=== PATIENT | male | born 1995 | race Caucasian/White ===

== ENCOUNTER 2025-04-08 13:22 | Emergency (ER) | payer MEDICAID ==
[~2025-04-08] VITALS: Ht 170.2 cm; Wt 89.0 kg
[2025-04-08 13:24] VITALS: O2SAT 97
[2025-04-08 14:04] LABS: BASOPHILS % 0.7 % (0.0-2.0); EOSINOPHILS % 0.2 % (0.0-5.0); HEMATOCRIT. 47.8 % (42.0-52.0); HEMOGLOBIN. 16.6 g/dL (14.0-18.0); LYMPHOCYTES % 44.3 % (20.0-50.0); MEAN PLATELET VOLUME 8.6 fl (7.4-10.4); MONOCYTES % 3.0 % (2.0-8.0); NEUTROPHILS % 51.8 % (40.0-76.0); PLATELET 243 x1000/uL (130-400); RED BLOOD CELL COUNT 5.36 mill/uL (4.7-6.1); RED CELL DISTRIBUTION WIDTH 14.1 % (11.6-14.6)
[2025-04-08 14:37] LABS: CREATININE 0.8 mg/dL (0.6-1.3); UREA NITROGEN BLOOD 7 mg/dL (9-23)
[2025-04-08 14:38] LABS: TROPONIN I HIGH SENSITIVITY < 4 ng/L (3.0-53)
[2025-04-08] MEDS: CHLORDIAZEPOXIDE 25MG CAPSULE PO ONE (15:37)
[2025-04-08 15:57] LABS: ASPARTATE AMINOTRANSFERASE 80 IU/L (<34); BILIRUBIN DIRECT 0.4 mg/dL (<=3.0); BILIRUBIN TOTAL 1.3 mg/dL (0.1-1.0); PROTEIN TOTAL 8.2 g/dL (6.0-8.3)
[2025-04-08] MEDS: POTASSIUM CHLORIDE 20MEQ TABLET SR PO ONE (18:29)
[2025-04-08 18:31] VITALS: BP 163/104; PULSE 99; RESP 17; TEMP 37; O2SAT 98
== END 2025-04-08 18:40 | disposition home or self-care (01) ==
LOC: ER 13:22
DX: R06.02 Shortness of breath (principal); F10.239 Alcohol dependence with withdrawal, unspecified; Y90.9 Presence of alcohol in blood, level not specified
CPT/HCPCS: 36415; 71045; 80048; 80076; 80320; 84484; 85025; 93005; 99285; G0480